=== PATIENT | female | born 1985 | race Caucasian/White ===

== ENCOUNTER 2020-12-03 23:05 | Inpatient (IN) | payer SELFPAY ==
[2020-12-03 23:15] VITALS: BP 165/99; PULSE 85; RESP 15; TEMP 37.1; O2SAT 95
[2020-12-03 23:36] VITALS: BMI 17.5
[2020-12-04 06:00] VITALS: BP 115/78; PULSE 100; RESP 14; TEMP 37.1; O2SAT 97
[2020-12-04] MEDS: folic acid 1 mg Tablet PO (08:35)
[2020-12-04] MEDS: thiamine 100 mg Tablet PO (08:35)
[2020-12-04] MEDS: multivitamin therapeutic Tablet 1 TAB PO (08:35)
--- NOTE | 2020-12-04 13:31 | PM.NHP ---
Providers/Chief Complaint Admitting Physician: Elie Penny MD Chief Complaint: SI HPI NPU History of Present Illness Amy Johnson is a 35 year old female who was transferred from [facility] in [place], [place] after being picked up by the police for intoxication and both laying in the road and running into traffic. The [facility] ED note says: 35-year-old female brought in by local law enforcement for psychiatric evaluation. Patient is intoxicated. She was reported and per affidavit provided by local law enforcement to have been running into the road. She was combative prehospital and had to be physically restrained by local law enforcement. She is not cooperative in ED. She denies SI/HI, but she is refusing to get undressed into paper scrubs. I informed the patient that we will be able medically clearing her and when she is sober we could have her assessed by the behavioral team, but she is not cooperative, only saying to get that Coppin here. The patient says that she has been grieving since her boyfriend in July of this year. She is not sure what happened, but he in his sleep next to her. She has a hard time keeping the image out of her head sometimes. She also gets depressed at times. She is now living with another friend, and they got into an argument yesterday. She said she drank half a pint of vodka and was walking around, and must have passed out on the road. She says the police woke her up and she attempted to get away from them. She said she did not intend to run into the traffic. She has had suicidal ideation in the past, but she says she has not felt suicidal recently. She denies any history of auditory or visual hallucinations or any feelings of paranoia. The patient says she has been a heavy alcohol user in the past, and now will quit drinking for weeks or months at a time. She says she can consume up to 6 beers in a single session. She denies symptoms such as blacking out or withdrawal symptoms. She says she got a DUI in 2012. She denies drug use. She says she smokes 1/2 packs of cigarettes per day. The patient has a history of depression after the of her daughter in 2004. She took Prozac for a while, but it was only minimally helpful. She did enter counseling last year, and found it helpful. Meds NPU Home Medications Medication Instructions Recorded Confirmed Last Taken Type ibuprofen 600 mg PO TID PRN 12/03/20 12/03/20 11/30/20 History Allergies Allergy/AdvReac Type Severity Reaction Status Date / Time codeine Allergy Unknown Verified 12/03/20 23:16 Mental Status Exam MSE Comments: The patient is groomed and wearing [facility] scrubs, when we meet in the day room. She is calm and cooperative and at least somewhat reflective. No psychomotor agitation or retardation. Speech is at a regular rate and rhythm, normal volume, without pressure. She is alert and oriented to person, place, day and date, within 1 day. Attention and concentration are intact. She is able to spell the word WORLD correctly forwards and backwards. Memory is fair. She remembers 3/3 words immediately and 1/3 at 3 minutes. She remembers the names of the past 3 presidents. Mood is euthymic. Affect is pleasant and appropriate with good range. Thought process is linear and goal-directed without loose associations. Thought content she denies auditory and visual hallucinations and there are no delusions noted. She denies suicidal and homicidal ideation. Insight and judgment are intact. Vitals/I&O/Wt Last Vital Signs Temp 98.7 F 12/04/20 06:00 Pulse 100 12/04/20 06:00 Resp 14 12/04/20 06:00 BP 115/78 12/04/20 06:00 Pulse Ox 97 12/04/20 06:00 Weight last 48 hrs Weight 44.452 kg Weight 44.906 kg A&P Assessment and plan (1) Adjustment disorder with mixed anxiety and depressed mood: Status: Acute (2) Suicidal behavior: Status: Acute Additional A&P Information The patient is a 35-year-old woman who recently lost her boyfriend and still has some grief related to this loss. She does drink fairly heavily at times and yesterday passed out in the road. 1. Continue current medication. 2. Continue every 15 minute checks for safety. 3. Encourage individual, group and milieu therapies. 4. Encourage sober living treatment after discharge at the highest level of care to which he is willing to commit. Involuntary Hold Information 96 Hour Hold: 96 Hour Involuntary Admission: No Attestations NPU Medical Necessity Statement*: Psychiatric hospitalization is medically necessary to prevent access to lethal means, to reevaluate medication, and to coordinate a safe discharge. Patient will be in the hospital for over 2 midnights. Likely length of stay is 1-2 days. Coding Level of Care Code Acute Promotions Specialist for Dwaineg Fwd Diagnoses Adjustment disorder with mixed anxiety and depressed mood F43.23 Suicidal behavior R45.89
[2020-12-04 14:00] VITALS: BP 138/95; PULSE 81; RESP 16; TEMP 36.7; O2SAT 98
--- NOTE | 2020-12-04 14:23 | P.DS_ITS ---
Reason for Visit Reason for Visit: SI Brief History: Amy Johnson is a 35 year old female who was transferred from [facility] in [place], [place] after being picked up by the police for intoxication and both laying in the road and running into traffic. The [facility] ED note says: 35-year-old female brought in by local law enforcement for psychiatric evaluation. Patient is intoxicated. She was reported and per affidavit provided by local law enforcement to have been running into the road. She was combative prehospital and had to be physically restrained by local law enforcement. She is not cooperative in ED. She denies SI/HI, but she is refusing to get undressed into paper scrubs. I informed the patient that we will be able medically clearing her and when she is sober we could have her assessed by the behavioral team, but she is not cooperative, only saying to get that Coppin here. The patient says that she has been grieving since her boyfriend in July of this year. She is not sure what happened, but he in his sleep next to her. She has a hard time keeping the image out of her head sometimes. She also gets depressed at times. She is now living with another friend, and they got into an argument yesterday. She said she drank half a pint of vodka and was walking around, and must have passed out on the road. She says the police woke her up and she attempted to get away from them. She said she did not intend to run into the traffic. She has had suicidal ideation in the past, but she says she has not felt suicidal recently. She denies any history of auditory or visual hallucinations or any feelings of paranoia. The patient says she has been a heavy alcohol user in the past, and now will quit drinking for weeks or months at a time. She says she can consume up to 6 beers in a single session. She denies symptoms such as blacking out or withdrawal symptoms. She says she got a DUI in 2012. She denies drug use. She says she smokes 1/2 packs of cigarettes per day. The patient has a history of depression after the of her daughter in 2004. She took Prozac for a while, but it was only minimally helpful. She did enter counseling last year, and found it helpful. Hospital Course Hospital Course The patient was transferred after acting erratically while intoxicated. She was admitted to the neuropsychiatric unit for definitive treatment of these issues. Once she had sobered up, she returned to her usual frame of mind, in which she is not depressed or suicidal. She does have grief from the loss of her boyfrien d a few months ago, which likely makes it harder for her to manage stress, which she was experiencing yesterday. Her behavior on the unit was rational without impulsiveness. She was receptive to treatment team recommendations. The treatment team's assessment was that the patient's behavior yesterday was due to the influences of alcohol intoxication, and once the patient was no longer intoxicated, she was no longer at risk of harm to self or others. Discharge Summary: At the time of discharge, psychosis and lethality were denied. Mood and anxiety were well managed. Patient endorsed a plan to avoid all drugs of abuse and follow-up with the aftercare recommendations of the treatment team. Patient was evaluated and deemed to be absent credible lethality, and had achieved the maximum benefit from an inpatient hospitalization, so was discharged. Involuntary Hold Information 96 Hour Hold: 96 Hour Involuntary Admission: No Mental Status Exam MSE Comments: The patient is groomed and wearing green hospital scrubs, when we meet in the day room. She is calm and cooperative and at least somewhat reflective. No psychomotor agitation or retardation. Speech is at a regular rate and rhythm, normal volume, without pressure. She is alert and oriented to person, place, day and date, within 1 day. Attention and concentration are intact. She is able to spell the word WORLD correctly forwards and backwards. Memory is fair. She remembers 3/3 words immediately and 1/3 at 3 minutes. She remembers the names of the past 3 presidents. Mood is euthymic. Affect is pleasant and appropriate with good range. Thought process is linear and goal-directed without loose associations. Thought content she denies auditory and visual hallucinations and there are no delusions noted. She denies suicidal and homicidal ideation. Insight and judgment are intact. Discharge Data Vitals: Last Vital Signs Temp 98.7 F 12/04/20 06:00 Pulse 100 12/04/20 06:00 Resp 14 12/04/20 06:00 BP 115/78 12/04/20 06:00 Pulse Ox 97 12/04/20 06:00 Discharge Plan Discharge Patient Disposition: Home Condition: Stable Prescriptions: Continued ibuprofen 600 mg Tablet 600 mg PO TID PRN (Reason: Pain) RF: 0 Discharge Orders: Discharge Order (Routine); Ordered 12/04/20 Ordered By: Elie Penny Referrals: [facility] [Other] - 12/08/20 2:00 pm (Appointment with Dr. Demetris Lopez on 12/08/2020 @ 2:00 pm. ) Discharge Diet: Usual diet Discharge Activity: Resume usual activity Patient Instructions: Opioid Safety Discharge Attestations NPU Time Spent in Discharge Care*: less than 30 min Specific Discharge Activities: Specific discharge activities: educating patient, discussing with disability case manager/social workers/dc planners, documenting/other paperwork and evaluating patient/reviewing data Status at Discharge: Cognitive status at discharge: cognitively intact , Behavioral status at discharge: cooperative , Functional status at discharge: independent ambulation Overall status at discharge: patient is back to baseline Coding Level of Care Code Acute Chg FW DC note
[2020-12-04 14:25] VITALS: BP 115/78; PULSE 100; RESP 14; TEMP 37.1; O2SAT 97
--- NOTE | 2020-12-06 14:56 | PC.RESP ---
Smoking information sent to patient.
== END 2020-12-04 17:50 | disposition home or self-care (01) | DRG 882 ==
PROVIDERS: Admitting Provider Psychiatry & Neurology Child & Adolescent Psychiatry; Visit Provider Psychiatry & Neurology Child & Adolescent Psychiatry
DX: F43.23 Adjustment disorder with mixed anxiety and depressed mood (principal); R45.89 Other symptoms and signs involving emotional state; F10.929 Alcohol use, unspecified with intoxication, unspecified; F17.210 Nicotine dependence, cigarettes, uncomplicated